=== PATIENT | female | born 1940 | race African-American/Black ===

== ENCOUNTER 2025-01-08 10:33 | Inpatient (IN) | payer MEDICARE, OTHER ==
[~2025-01-08] VITALS: Ht 160 cm; Wt 58.1 kg
[2025-01-08] VITALS (7 sets, daily range): BP systolic 128–152; BP diastolic 64–80; TEMP 97.8; O2SAT 92–100
[2025-01-08 11:22] LABS: PLATELET COUNT (AUTO) 311 K/uL (150-450); RED BLOOD CELL COUNT(AUTO) 3.63 MIL/uL (4.0-5.2); RED CELL DISTRIBUTION WIDTH 14.4 % (11.5-15.0); WHITE BLOOD COUNT (AUTO) 9.5 K/uL (4.3-11.0)
[2025-01-08 11:22] LABS: ABG BASE EXCESS 10.5 mmol/L (-2.0-3.0); ABG OXYGEN SATURATION 99.4 % (94.0-98.0); ABG PCO2 120.8 mmHg (32.0-45.0); ABG PH 7.167 (7.350-7.450); ABG PO2 280.5 mmHg (83.0-108.0); ABG TOTAL HEMOGLOBIN 11.1 G/dL (12.0-16.0); FRACTIONATED INSPIRED OXYGEN 100.0 %; SITE, ABG RIGHT RADIAL
[2025-01-08] MEDS ORDERED: PROPOFOL 20 ML IV ONE (11:28)
[2025-01-08 11:30] LABS: CALCIUM, SERUM 9.2 mg/dL (8.5-10.1); CREATININE 0.5 mg/dL (0.6-1.3); SODIUM SERUM 143 mmol/L (136-145); UREA NITROGEN, BLOOD 16 mg/dL (7-18)
[2025-01-08] MEDS: PROPOFOL 200 MG/20 ML VIAL IV ONE (11:30)
[2025-01-08 11:35] LABS: ASPARTATE AMINOTRANSFERASE 16 U/L (15-37); TOTAL PROTEIN, SERUM 7.4 g/dL (6.4-8.2)
[2025-01-08 11:37] LABS: LACTIC ACID 0.5 mmol/L (0.4-2.0)
[2025-01-08 11:41] LABS: INR 1.15 (0.91-1.10)
[2025-01-08] MEDS ORDERED: ASPI-1169 PO (12:31)
[2025-01-08] MEDS ORDERED: GABA-532 PO (12:31)
[2025-01-08] MEDS ORDERED: FURO20TA4 PO (12:31)
[2025-01-08] MEDS ORDERED: BUSP5TAB3 PO (12:32)
[2025-01-08] MEDS ORDERED: ACET-2030 PO (12:32)
[2025-01-08] MEDS ORDERED: ATOR40TA PO (12:32)
[2025-01-08] MEDS ORDERED: CALC500T53 PO (12:32)
[2025-01-08] MEDS ORDERED: MAGN400O6 PO (12:32)
[2025-01-08] MEDS ORDERED: BISA10SU11 RC (12:32)
[2025-01-08] MEDS ORDERED: ALBU8.5H8 IH (12:32)
[2025-01-08] MEDS ORDERED: DONE10TA44 PO (12:32)
[2025-01-08] MEDS ORDERED: ACET-868 PO ×2 (12:32)
[2025-01-08] MEDS ORDERED: CHOL100043 PO (12:32)
[2025-01-08] MEDS ORDERED: NA P133E RC (12:32)
[2025-01-08] MEDS ORDERED: AMIN30LI2 PO (12:32)
[2025-01-08 12:56] LABS: APPEARANCE,URINE SLIGHTLY CLOUDY (CLEAR); BLOOD, URINE TRACE-INTA Ery/uL (NEGATIVE); LEUKOCYTE ESTERASE ,URINE 1+ (NEGATIVE); NITRITE, URINE POSITIVE (NEGATIVE); UGLUCOSE NEGATIVE (NEGATIVE)
[2025-01-08 13:05] LABS: ADD URINE CULTURE YES; SQUAMOUS EPITHELIAL CELL,UR Moderate /HPF (None Seen)
[2025-01-08] MEDS ORDERED: ENOXAPARIN SODIUM 40 MG/0.4 ML DISP.SYRIN SQ SCH (14:00)
[2025-01-08] MEDS ORDERED: FUROSEMIDE 40 MG/4 ML VIAL IV SCH (14:00)
[2025-01-08] MEDS ORDERED: DOSING PER PHARMACY-CEFEPIME IVPB XX PRN (14:00)
[2025-01-08] MEDS ORDERED: ACETAMINOPHEN 325 MG TABLET PO PRN (15:30)
[2025-01-08] MEDS ORDERED: Z GUARD REMEDY 4 OZ OINT TP PRN (15:30)
[2025-01-08] MEDS ORDERED: ONDANSETRON HCL/PF 4 MG/2 ML VIAL IVP PRN (15:30)
[2025-01-08] MEDS: ENOXAPARIN SODIUM 40 MG/0.4 ML DISP.SYRIN SQ SCH (17:46)
[2025-01-08] MEDS: FUROSEMIDE 40 MG/4 ML VIAL IV SCH (17:46)
[2025-01-08] MEDS: PROPOFOL 100 ML IV PRN (17:48)
[2025-01-08 17:52] LABS: ABG BASE EXCESS 7.1 mmol/L (-2.0-3.0); ABG OXYGEN SATURATION 91.4 % (94.0-98.0); ABG PCO2 45.9 mmHg (32.0-45.0); ABG PH 7.459 (7.350-7.450); ABG PO2 58.1 mmHg (83.0-108.0); ABG TOTAL HEMOGLOBIN 10.5 G/dL (12.0-16.0); FRACTIONATED INSPIRED OXYGEN 50.0 %; PEEP,BG 5 cm H2O; SET RATE, BG 16.0; SITE, ABG RIGHT RADIAL; VT, ABG 400 mL
[2025-01-08] MEDS: IV NS 0.9% 250 ML IV PRN (20:50)
[2025-01-08] MEDS: CEFEPIME 2 GM in IV D5W 100 ML IV SCH (21:00)
[2025-01-08] MEDS: DONEPEZIL 5 MG TABLET PO SCH (22:00)
[2025-01-08] MEDS: ATORVASTATIN 40 MG TABLET PO SCH (22:00)
[2025-01-09] VITALS (24 sets, daily range): BP systolic 97–136; BP diastolic 66–83; TEMP 97.7–98.4; O2SAT 100
[2025-01-09 04:32] LABS: PLATELET COUNT (AUTO) 280 K/uL (150-450); RED BLOOD CELL COUNT(AUTO) 3.61 MIL/uL (4.0-5.2); RED CELL DISTRIBUTION WIDTH 14.0 % (11.5-15.0); WHITE BLOOD COUNT (AUTO) 11.0 K/uL (4.3-11.0)
[2025-01-09 05:17] LABS: CALCIUM, SERUM 9.5 mg/dL (8.5-10.1); CREATININE 0.6 mg/dL (0.6-1.3); PHOSPHORUS 2.8 mg/dL (2.5-4.9); SODIUM SERUM 145.0 mmol/L (136-145); UREA NITROGEN, BLOOD 14.0 mg/dL (7-18)
[2025-01-09] MEDS: POTASSIUM CL. PREMIX PERIPHER. 50 ML IV SCH (06:36)
[2025-01-09] MEDS: PANTOPRAZOLE 40 MG TABLET.DR PO SCH (07:30)
[2025-01-09] MEDS: ASPIRIN 81 MG TAB.CHEW PO SCH (08:22)
[2025-01-09 08:29] LABS: ABG BASE EXCESS 10.8 mmol/L (-2.0-3.0); ABG OXYGEN SATURATION 98.2 % (94.0-98.0); ABG PCO2 37.4 mmHg (32.0-45.0); ABG PH 7.571 (7.350-7.450); ABG PO2 112.8 mmHg (83.0-108.0); ABG TOTAL HEMOGLOBIN 10.4 G/dL (12.0-16.0); FRACTIONATED INSPIRED OXYGEN 50.0 %; PEEP,BG 5 cm H2O; SET RATE, BG 16.0; SITE, ABG RIGHT RADIAL; VT, ABG 400 mL
[2025-01-09] MEDS ORDERED: MAGNESIUM OXIDE 400 MG TABLET PO ONE (10:30)
[2025-01-09] MEDS: Magnesium 1GM/D5W 100ML PREMIX 100 ML IV SCH (11:05)
[2025-01-09] MEDS: FUROSEMIDE 40 MG/4 ML VIAL IV SCH ×2 (12:54→18:09)
[2025-01-09] MEDS ORDERED: GUAIFENESIN 300 MG/15 ML UDC PO PRN (15:00)
[2025-01-09] MEDS: JEVITY 1.2 CAL 1,000 ML BOTTLE GT PRN (18:11)
[2025-01-10] VITALS (34 sets, daily range): BP systolic 101–139; BP diastolic 60–102; TEMP 97.1–98.8; O2SAT 96–100
[2025-01-10 04:39] LABS: CALCIUM, SERUM 9.0 mg/dL (8.5-10.1); CREATININE 0.6 mg/dL (0.6-1.3); SODIUM SERUM 142.0 mmol/L (136-145); UREA NITROGEN, BLOOD 19.0 mg/dL (7-18)
[2025-01-10] MEDS: PANTOPRAZOLE 40 MG/PACK PACK GT SCH (09:03)
[2025-01-10 13:34] LABS: ABG BASE EXCESS 6.7 mmol/L (-2.0-3.0); ABG OXYGEN SATURATION 96.6 % (94.0-98.0); ABG PCO2 39.1 mmHg (32.0-45.0); ABG PH 7.506 (7.350-7.450); ABG PO2 87.5 mmHg (83.0-108.0); ABG TOTAL HEMOGLOBIN 10.3 G/dL (12.0-16.0); FRACTIONATED INSPIRED OXYGEN 40.0 %; PEEP,BG 5 cm H2O; SET RATE, BG 4.0; SITE, ABG LEFT RADIAL; VT, ABG 350 mL
[2025-01-11] VITALS (18 sets, daily range): BP systolic 111–138; BP diastolic 63–82; TEMP 97.2–98.8; O2SAT 98–100
[2025-01-11] MEDS: IPRATROPIUM NEB FS 0.5 MG/2.5 ML AMPUL.NEB NEB SCH (19:30)
[2025-01-11] MEDS: ALBUTEROL HALF STRENGTH 1.25 MG/3 ML VIAL.NEB NEB SCH (19:30)
[2025-01-12] VITALS (11 sets, daily range): BP systolic 127–154; BP diastolic 48–78; TEMP 97.5–98.8; O2SAT 98–100
[2025-01-12] MEDS ORDERED: IV NS 0.9% 0 ML IV ONE (11:24)
[2025-01-12] MEDS ORDERED: IOHEXOL-300 100 ML VIAL IV ONE (11:24)
[2025-01-12 17:18] LABS: PLATELET COUNT (AUTO) 281 K/uL (150-450); RED BLOOD CELL COUNT(AUTO) 3.22 MIL/uL (4.0-5.2); RED CELL DISTRIBUTION WIDTH 13.8 % (11.5-15.0); WHITE BLOOD COUNT (AUTO) 11.2 K/uL (4.3-11.0)
[2025-01-12 17:47] LABS: CALCIUM, SERUM 9.4 mg/dL (8.5-10.1); CREATININE 0.8 mg/dL (0.6-1.3); PHOSPHORUS 3.3 mg/dL (2.5-4.9); SODIUM SERUM 144.0 mmol/L (136-145); UREA NITROGEN, BLOOD 21.0 mg/dL (7-18)
[2025-01-13] VITALS (11 sets, daily range): BP systolic 107–134; BP diastolic 68–81; TEMP 97.5–98.8; O2SAT 90–100
[2025-01-13 08:07] LABS: FOLIC ACID 17.1 ng/mL (>3.0)
[2025-01-13] MEDS ORDERED: CT SWABBABLE VALVE TRANS SET 1 EA INFUS.SET MC ONE (09:23)
[2025-01-13] MEDS ORDERED: IV NS 0.9% 500 ML IV ONE (09:23)
[2025-01-13] MEDS ORDERED: IOHEXOL-300 100 ML VIAL IV ONE (09:24)
[2025-01-13] MEDS: ENSURE ENLIVE CHOC 237 ML CAN PO SCH (11:05)
[2025-01-14] VITALS: BP 130/78; TEMP 98.1; O2SAT 94
[2025-01-14 04:00] VITALS: BP 123/74; TEMP 98.1; O2SAT 95
[2025-01-14 08:00] VITALS: BP 126/86; TEMP 97.9; O2SAT 98
[2025-01-14] MEDS: METOPROLOL SUCCINATE 25 MG TAB.SR.24H PO SCH (09:01)
[2025-01-14 16:00] VITALS: BP 141/91; TEMP 97.9; O2SAT 98
[2025-01-14 20:00] VITALS: BP 113/72; TEMP 98.2; O2SAT 100
[2025-01-14 21:00] VITALS: BP 113/72; TEMP 98.2; O2SAT 100
[2025-01-15 04:00] VITALS: BP 138/71; TEMP 97.7; O2SAT 98
[2025-01-15 06:25] LABS: PLATELET COUNT (AUTO) 240 K/uL (150-450); RED BLOOD CELL COUNT(AUTO) 3.46 MIL/uL (4.0-5.2); RED CELL DISTRIBUTION WIDTH 13.9 % (11.5-15.0); WHITE BLOOD COUNT (AUTO) 10.8 K/uL (4.3-11.0)
[2025-01-15 07:06] LABS: CALCIUM, SERUM 8.9 mg/dL (8.5-10.1); CREATININE 0.6 mg/dL (0.6-1.3); UREA NITROGEN, BLOOD 17.0 mg/dL (7-18)
[2025-01-15 07:15] LABS: SODIUM SERUM 136.0 mmol/L (136-145)
[2025-01-15] MEDS ORDERED: POTASSIUM CHLORIDE 20 MEQ TAB.PRT.SR PO ONE (08:00)
[2025-01-15] MEDS: POTASSIUM CL. PREMIX PERIPHER. 50 ML IV SCH (10:51)
[2025-01-15 12:00] VITALS: BP 138/71; TEMP 97.7; O2SAT 98
[2025-01-15 14:07] LABS: METHYLMALONIC ACID 210.0 nmol/L (0-378)
[2025-01-15 16:00] VITALS: BP 89/60; TEMP 97.9; O2SAT 98
[2025-01-15 19:50] VITALS: O2SAT 99
[2025-01-15 20:00] VITALS: BP 128/71; TEMP 97.5; O2SAT 100
[2025-01-15 20:05] VITALS: O2SAT 99
[2025-01-16 04:00] VITALS: BP 145/79; TEMP 97.3; O2SAT 98
[2025-01-16 07:25] VITALS: O2SAT 96
[2025-01-16 07:40] VITALS: O2SAT 99
[2025-01-16 08:00] VITALS: BP 137/77; TEMP 97.5; O2SAT 99
[2025-01-16 09:06] VITALS: BP 137/77
[2025-01-16] MEDS: THERAHONEY GEL 1.5 OZ TUBE TP SCH (09:07)
[2025-01-16] MEDS ORDERED: FURO-144 PO (09:12)
[2025-01-16] MEDS ORDERED: METO25TA4 PO (09:12)
[2025-01-16] MEDS ORDERED: POTA10CA43 PO (09:13)
== END 2025-01-16 13:55 | DRG 208 ==
LOC: ER 10:41 → ICU 17:05 → TELE1 01-11 16:20 → UNDODISIN 01-12 01:55 → MEDSG1 01-14 08:50
PROVIDERS: ADMIT Nurse Practitioner Family; ATTEND Internal Medicine
PROC: 5A1945Z Respiratory Ventilation, 24-96 Consecutive Hours (ICD-10-PCS; principal; 2025-01-08)
PROC: 0BH18EZ Insertion of Endotracheal Airway into Trachea, Via Natural or Artificial Opening Endoscopic (ICD-10-PCS; 2025-01-08)
DX: J96.21 Acute and chronic respiratory failure with hypoxia (principal); G93.41 Metabolic encephalopathy; I50.43 Acute on chronic combined systolic (congestive) and diastolic (congestive) heart failure; E44.1 Mild protein-calorie malnutrition; I42.9 Cardiomyopathy, unspecified; C34.31 Malignant neoplasm of lower lobe, right bronchus or lung; I11.0 Hypertensive heart disease with heart failure; J96.22 Acute and chronic respiratory failure with hypercapnia; I48.91 Unspecified atrial fibrillation; F03.90 Unspecified dementia, unspecified severity, without behavioral disturbance, psychotic disturbance, mood disturbance, and anxiety; I69.392 Facial weakness following cerebral infarction; J44.9 Chronic obstructive pulmonary disease, unspecified; E78.5 Hyperlipidemia, unspecified; E88.09 Other disorders of plasma-protein metabolism, not elsewhere classified; Z95.0 Presence of cardiac pacemaker; Z87.891 Personal history of nicotine dependence; F09 Unspecified mental disorder due to known physiological condition; I25.10 Atherosclerotic heart disease of native coronary artery without angina pectoris; Z68.22 Body mass index [BMI] 22.0-22.9, adult; I35.0 Nonrheumatic aortic (valve) stenosis; E87.6 Hypokalemia
CPT/HCPCS: 31720; 36415; 36600; 70450-TC; 71045-TC; 71270-TC; 80048-TC; 80076-TC; 81001; 82607-TC; 82803-TC; 83605-TC; 83735-TC; 83880; 83921; 84100-TC; 84132-TC; 84425; 84443-TC; 84484-TC; 85025-TC; 85730-TC; 87040-TC; 87081-TC; 87086-TC; 87186-TC; 92526; 92611; 93307-TC; 94002-TC; 94003-TC; 94760-TC; 94799-TC; 99082-TC; A4223; A7526; G0378; J0692; J1650; J1938; J2704; J3475; J3480; J3490; J7040; J7050; J7060; Q9967

== ENCOUNTER 2025-02-19 10:16 | Inpatient (IN) | payer MEDICARE, OTHER ==
[2025-02-19] VITALS (16 sets, daily range): BP systolic 86–151; BP diastolic 57–80; TEMP 97.8; O2SAT 88–100
[~2025-02-19] VITALS: Ht 167.6 cm; Wt 60.8 kg
[~2025-02-19 10:16] MED LIST: ACET-2030 PO; ACET-868 PO; ALBU8.5H8 IH; AMIN30LI2 PO; ASPI-1169 PO; ATOR40TA PO; BISA10SU11 RC; BUSP5TAB3 PO; CALC500T53 PO; CHOL100043 PO; DONE10TA44 PO; FURO-144 PO; GABA-532 PO; MAGN400O6 PO; METO25TA4 PO; NA P133E RC; POTA10CA43 PO
[2025-02-19 11:01] LABS: PLATELET COUNT (AUTO) 432 K/uL (150-450); RED BLOOD CELL COUNT(AUTO) 3.54 MIL/uL (4.0-5.2); RED CELL DISTRIBUTION WIDTH 16.1 % (11.5-15.0); WHITE BLOOD COUNT (AUTO) 12.0 K/uL (4.3-11.0)
[2025-02-19 11:03] LABS: INR 1.17 (0.91-1.10)
[2025-02-19 11:04] LABS: SERUM AMMONIA 33 umol/L (11-32)
[2025-02-19 11:05] LABS: ASPARTATE AMINOTRANSFERASE 16 U/L (15-37); CALCIUM, SERUM 9.0 mg/dL (8.5-10.1); CREATININE 0.8 mg/dL (0.6-1.3); SODIUM SERUM 147 mmol/L (136-145); TOTAL PROTEIN, SERUM 7.9 g/dL (6.4-8.2); UREA NITROGEN, BLOOD 30 mg/dL (7-18)
[2025-02-19 11:05] LABS: ABG BASE EXCESS 12.6 mmol/L (-2.0-3.0); ABG OXYGEN SATURATION 83.1 % (94.0-98.0); ABG PCO2 74.9 mmHg (32.0-45.0); ABG PH 7.354 (7.350-7.450); ABG PO2 56.6 mmHg (83.0-108.0); ABG TOTAL HEMOGLOBIN 11.0 G/dL (12.0-16.0); FLOW, BLOOD GAS 2.00 L/min (0.00-30.00); FRACTIONATED INSPIRED OXYGEN 28.0 %; SITE, ABG LEFT RADIAL
[2025-02-19] MEDS ORDERED: AMIN30LI66 PO (11:27)
[2025-02-19] MEDS ORDERED: FURO-144 PO (11:27)
[2025-02-19] MEDS ORDERED: POTA10CA43 PO (11:27)
[2025-02-19] MEDS ORDERED: ASCO-352 PO (11:27)
[2025-02-19] MEDS ORDERED: METO25TA6 PO (11:27)
[2025-02-19] MEDS ORDERED: COLL30OI TP (11:27)
[2025-02-19] MEDS ORDERED: MULT-447 PO (11:27)
[2025-02-19] MEDS ORDERED: ALBUTEROL FS 2.5 MG/3 ML VIAL.NEB ONE (11:46)
[2025-02-19] MEDS ORDERED: IPRATROPIUM NEB FS 0.5 MG/2.5 ML AMPUL.NEB ONE (11:46)
[2025-02-19] MEDS: IPRATROPIUM NEB FS 0.5 MG/2.5 ML AMPUL.NEB NEB ONE (11:58)
[2025-02-19] MEDS: ALBUTEROL FS 2.5 MG/3 ML VIAL.NEB NEB ONE (11:58)
[2025-02-19] MEDS ORDERED: IPRATROPIUM NEB FS 0.5 MG/2.5 ML AMPUL.NEB NEB PRN (15:30)
[2025-02-19] MEDS ORDERED: ACETAMINOPHEN 650 MG/SUPP.RECT RC PRN (15:30)
[2025-02-19] MEDS ORDERED: ONDANSETRON HCL/PF 4 MG/2 ML VIAL IVP PRN (15:30)
[2025-02-19] MEDS ORDERED: ALBUTEROL FS 2.5 MG/0.5 ML VIAL.NEB NEB PRN (15:30)
[2025-02-19] MEDS: ENOXAPARIN SODIUM 40 MG/0.4 ML DISP.SYRIN SQ SCH (17:35)
[2025-02-20] VITALS (22 sets, daily range): BP systolic 88–143; BP diastolic 61–100; TEMP 97.3–98.1; O2SAT 94–100
[2025-02-20 04:08] LABS: PLATELET COUNT (AUTO) 398 K/uL (150-450); RED BLOOD CELL COUNT(AUTO) 3.67 MIL/uL (4.0-5.2); RED CELL DISTRIBUTION WIDTH 16.2 % (11.5-15.0); WHITE BLOOD COUNT (AUTO) 6.2 K/uL (4.3-11.0)
[2025-02-20 04:20] LABS: CALCIUM, SERUM 9.2 mg/dL (8.5-10.1); CREATININE 1.1 mg/dL (0.6-1.3); PHOSPHORUS 6.1 mg/dL (2.5-4.9); UREA NITROGEN, BLOOD 43.0 mg/dL (7-18)
[2025-02-20 04:34] LABS: SODIUM SERUM 150.0 mmol/L (136-145)
[2025-02-20] MEDS: PANTOPRAZOLE 40 MG VIAL IV SCH (08:06)
[2025-02-20 08:13] LABS: FRACTIONATED INSPIRED OXYGEN 40.0 %
[2025-02-20 09:46] LABS: ABG BASE EXCESS 9.8 mmol/L (-2.0-3.0); ABG OXYGEN SATURATION 97.9 % (94.0-98.0); ABG PCO2 51.2 mmHg (32.0-45.0); ABG PH 7.454 (7.350-7.450); ABG PO2 101.1 mmHg (83.0-108.0); ABG TOTAL HEMOGLOBIN 11.0 G/dL (12.0-16.0); SET RATE, BG 24.0; SITE, ABG RIGHT RADIAL
[2025-02-20] MEDS: IV D5W 1,000 ML IV SCH (10:21)
[2025-02-20] MEDS ORDERED: DOSING PER PHARMACY-CEFEPIME IVPB XX PRN (12:30)
[2025-02-20] MEDS: THERAHONEY GEL 1.5 OZ TUBE TP SCH (12:45)
[2025-02-20] MEDS: CEFEPIME 2 GM in IV D5W 100 ML IV SCH (14:05)
[2025-02-20 14:10] LABS: ABG BASE EXCESS 12.3 mmol/L (-2.0-3.0); ABG OXYGEN SATURATION 90.1 % (94.0-98.0); ABG PCO2 48.5 mmHg (32.0-45.0); ABG PH 7.500 (7.350-7.450); ABG PO2 57.1 mmHg (83.0-108.0); ABG TOTAL HEMOGLOBIN 10.6 G/dL (12.0-16.0); FLOW, BLOOD GAS 2.00 L/min (0.00-30.00); FRACTIONATED INSPIRED OXYGEN 28.0 %; SITE, ABG LEFT RADIAL
[2025-02-20] MEDS: ALBUTEROL FS 2.5 MG/0.5 ML VIAL.NEB NEB SCH (14:12)
[2025-02-20] MEDS: IPRATROPIUM NEB FS 0.5 MG/2.5 ML AMPUL.NEB NEB SCH (14:12)
[2025-02-20 23:52] LABS: APPEARANCE,URINE CLOUDY (CLEAR); BLOOD, URINE NEGATIVE Ery/uL (NEGATIVE); LEUKOCYTE ESTERASE ,URINE 3+ (NEGATIVE); NITRITE, URINE NEGATIVE (NEGATIVE); UGLUCOSE NEGATIVE (NEGATIVE)
[2025-02-21] VITALS (8 sets, daily range): BP systolic 105–159; BP diastolic 75–98; TEMP 97.2–98.2; O2SAT 96–100
[2025-02-21 00:12] LABS: CREATININE, URINE 88.6 MG/DL (30.0-125.0); URINE TOTAL PROTEIN 65.2 mg/dL (0-11.9)
[2025-02-21 00:34] LABS: ADD URINE CULTURE YES; CALCIUM OXALATE CRYSTALS,UR Moderate /HPF (None Seen); SQUAMOUS EPITHELIAL CELL,UR Moderate /HPF (None Seen)
[2025-02-21 00:40] LABS: EOSINOPHIL,URINE None Seen
[2025-02-21 11:04] LABS: PLATELET COUNT (AUTO) 374 K/uL (150-450); RED BLOOD CELL COUNT(AUTO) 3.34 MIL/uL (4.0-5.2); RED CELL DISTRIBUTION WIDTH 15.8 % (11.5-15.0); WHITE BLOOD COUNT (AUTO) 9.7 K/uL (4.3-11.0)
[2025-02-21 11:30] LABS: CREATINE KINASE, TOTAL 28 U/L (26-192)
[2025-02-21 11:34] LABS: ASPARTATE AMINOTRANSFERASE 11 U/L (15-37); CALCIUM, SERUM 9.2 mg/dL (8.5-10.1); CREATININE 1.3 mg/dL (0.6-1.3); PHOSPHORUS 4.1 mg/dL (2.5-4.9); SODIUM SERUM 142 mmol/L (136-145); TOTAL PROTEIN, SERUM 7.3 g/dL (6.4-8.2); UREA NITROGEN, BLOOD 52 mg/dL (7-18)
[2025-02-22] VITALS (10 sets, daily range): BP systolic 133–166; BP diastolic 28–91; TEMP 97.1–98.4; O2SAT 94–100
[2025-02-22] MEDS ORDERED: POTASSIUM CL. PREMIX PERIPHER. 50 ML IV SCH (08:30)
[2025-02-22] MEDS: Magnesium 1GM/D5W 100ML PREMIX 100 ML IV SCH (08:30)
[2025-02-22] MEDS ORDERED: POTASSIUM PHOSPHATE MM 5 MMOL in IV NS 0.9% 100 ML IV SCH (08:30)
[2025-02-22] MEDS: IV D5/0.45 NACL 1,000 ML IV PRN (10:24)
[2025-02-22] MEDS: HALOPERIDOL LACTATE INJ 5 MG/ML VIAL IM PRN (12:27)
[2025-02-22 20:53] LABS: PLATELET COUNT (AUTO) 307 K/uL (150-450); RED BLOOD CELL COUNT(AUTO) 3.59 MIL/uL (4.0-5.2); RED CELL DISTRIBUTION WIDTH 16.1 % (11.5-15.0); WHITE BLOOD COUNT (AUTO) 7.3 K/uL (4.3-11.0)
[2025-02-22 21:06] LABS: ASPARTATE AMINOTRANSFERASE 14.0 U/L (15-37); CALCIUM, SERUM 9.2 mg/dL (8.5-10.1); CREATININE 0.9 mg/dL (0.6-1.3); PHOSPHORUS 1.8 mg/dL (2.5-4.9); SODIUM SERUM 140.0 mmol/L (136-145); TOTAL PROTEIN, SERUM 6.9 g/dL (6.4-8.2); UREA NITROGEN, BLOOD 38.0 mg/dL (7-18)
[2025-02-23] VITALS (7 sets, daily range): BP systolic 119–158; BP diastolic 80–98; TEMP 97–99; O2SAT 94–100
[2025-02-23 07:07] LABS: PTH, INTACT 45 pg/mL (15-65)
[2025-02-23 11:46] LABS: PLATELET COUNT (AUTO) 280 K/uL (150-450); RED BLOOD CELL COUNT(AUTO) 3.72 MIL/uL (4.0-5.2); RED CELL DISTRIBUTION WIDTH 16.2 % (11.5-15.0); WHITE BLOOD COUNT (AUTO) 5.5 K/uL (4.3-11.0)
[2025-02-23 12:19] LABS: ASPARTATE AMINOTRANSFERASE 49 U/L (15-37); CALCIUM, SERUM 9.5 mg/dL (8.5-10.1); CREATININE 1.5 mg/dL (0.6-1.3); SODIUM SERUM 135 mmol/L (136-145); TOTAL PROTEIN, SERUM 7.8 g/dL (6.4-8.2); UREA NITROGEN, BLOOD 19 mg/dL (7-18)
[2025-02-23 12:33] LABS: PHOSPHORUS 4.1 mg/dL (2.5-4.9)
[2025-02-23] MEDS: QUETIAPINE FUMARATE 25 MG TABLET PO SCH (13:30)
[2025-02-24] VITALS: BP 137/80; TEMP 99; O2SAT 94
[2025-02-24 04:00] VITALS: BP 139/82; TEMP 98.8; O2SAT 95
[2025-02-24 07:31] LABS: PLATELET COUNT (AUTO) 281 K/uL (150-450); RED BLOOD CELL COUNT(AUTO) 3.33 MIL/uL (4.0-5.2); RED CELL DISTRIBUTION WIDTH 16.1 % (11.5-15.0); WHITE BLOOD COUNT (AUTO) 9.3 K/uL (4.3-11.0)
[2025-02-24 07:32] LABS: ASPARTATE AMINOTRANSFERASE 16.0 U/L (15-37); CALCIUM, SERUM 8.8 mg/dL (8.5-10.1); CREATININE 0.8 mg/dL (0.6-1.3); PHOSPHORUS 1.7 mg/dL (2.5-4.9); TOTAL PROTEIN, SERUM 6.2 g/dL (6.4-8.2); UREA NITROGEN, BLOOD 24.0 mg/dL (7-18)
[2025-02-24 07:48] LABS: SODIUM SERUM 137.0 mmol/L (136-145)
[2025-02-24 08:00] VITALS: BP 159/76; TEMP 98.2; O2SAT 98
[2025-02-24] MEDS: Z GUARD REMEDY 4 OZ OINT TP PRN (10:03)
[2025-02-24] MEDS: POTASSIUM CL. PREMIX PERIPHER. 50 ML IV SCH (10:04)
[2025-02-24] MEDS: DICLOFENAC TOPICAL 100 GM TUBE TP PRN (11:33)
[2025-02-24 12:00] VITALS: BP 152/71; TEMP 97.9
[2025-02-24 16:00] VITALS: TEMP 97.3; O2SAT 99
[2025-02-24] MEDS: Sodium Phosphate 15 MMOL in IV NS 0.9% 245 ML IV ONE (17:10)
[2025-02-24 20:00] VITALS: BP 112/75; TEMP 98.2; O2SAT 99
[2025-02-25] VITALS: BP 112/75; TEMP 98.2; O2SAT 99
[2025-02-25 04:00] VITALS: BP 118/67; TEMP 98.6; O2SAT 94
[2025-02-25 07:54] LABS: PLATELET COUNT (AUTO) 247 K/uL (150-450); RED BLOOD CELL COUNT(AUTO) 3.46 MIL/uL (4.0-5.2); RED CELL DISTRIBUTION WIDTH 16.1 % (11.5-15.0); WHITE BLOOD COUNT (AUTO) 13.4 K/uL (4.3-11.0)
[2025-02-25 08:00] VITALS: BP 105/81; TEMP 98.2; O2SAT 98
[2025-02-25 08:20] LABS: CALCIUM, SERUM 8.5 mg/dL (8.5-10.1); CREATININE 0.7 mg/dL (0.6-1.3); PHOSPHORUS 2.5 mg/dL (2.5-4.9); SODIUM SERUM 136.0 mmol/L (136-145); UREA NITROGEN, BLOOD 19.0 mg/dL (7-18)
[2025-02-25] MEDS: PANTOPRAZOLE 40 MG TABLET.DR PO SCH (10:00)
[2025-02-25] MEDS: POTASSIUM CHLORIDE 20 MEQ POWDER PACKET PO SCH (11:00)
[2025-02-25] MEDS ORDERED: CEFE2FRO IV (11:02)
[2025-02-25] MEDS ORDERED: QUET25TA PO (11:02)
[2025-02-25] MEDS ORDERED: IPRA3AMP23 IH (11:09)
[2025-02-25] MEDS: POTASSIUM CL. PREMIX PERIPHER. 50 ML IV SCH (11:44)
[2025-02-25 12:00] VITALS: BP 105/81; TEMP 98.2; O2SAT 98
[2025-02-25 16:00] VITALS: BP 109/79; TEMP 98.1; O2SAT 94
== END 2025-02-25 20:13 | DRG 190 ==
LOC: ER 10:21 → ICU 15:48 → TELE1 02-20 17:39 → TELE-TD 02-20 20:34 → MEDSG1 02-23 09:38
PROVIDERS: ATTEND Nurse Practitioner Family
PROC: 5A09357 Assistance with Respiratory Ventilation, Less than 24 Consecutive Hours, Continuous Positive Airway Pressure (ICD-10-PCS; principal; 2025-02-19)
DX: J44.1 Chronic obstructive pulmonary disease with (acute) exacerbation (principal); G93.41 Metabolic encephalopathy; J96.21 Acute and chronic respiratory failure with hypoxia; J96.22 Acute and chronic respiratory failure with hypercapnia; E44.1 Mild protein-calorie malnutrition; E87.0 Hyperosmolality and hypernatremia; N17.9 Acute kidney failure, unspecified; E87.3 Alkalosis; I50.42 Chronic combined systolic (congestive) and diastolic (congestive) heart failure; C34.31 Malignant neoplasm of lower lobe, right bronchus or lung; I11.0 Hypertensive heart disease with heart failure; D64.9 Anemia, unspecified; E78.5 Hyperlipidemia, unspecified; E86.0 Dehydration; E87.6 Hypokalemia; E88.09 Other disorders of plasma-protein metabolism, not elsewhere classified; F03.90 Unspecified dementia, unspecified severity, without behavioral disturbance, psychotic disturbance, mood disturbance, and anxiety; Z79.82 Long term (current) use of aspirin; Z86.73 Personal history of transient ischemic attack (TIA), and cerebral infarction without residual deficits; E83.89 Other disorders of mineral metabolism; R13.10 Dysphagia, unspecified; Z68.21 Body mass index [BMI] 21.0-21.9, adult; Z95.0 Presence of cardiac pacemaker; F29 Unspecified psychosis not due to a substance or known physiological condition; S31.000A Unspecified open wound of lower back and pelvis without penetration into retroperitoneum, initial encounter; X58.XXXA Exposure to other specified factors, initial encounter; Y93.9 Activity, unspecified; Y92.129 Unspecified place in nursing home as the place of occurrence of the external cause
CPT/HCPCS: 36415; 36600; 71045-TC; 80048-TC; 80053-TC; 80076-TC; 81001; 82140-TC; 82550-TC; 82570-TC; 82803-TC; 83735-TC; 83970; 84100-TC; 84155; 84165; 84300-TC; 84443-TC; 84484-TC; 85025-TC; 85730-TC; 87081-TC; 87086-TC; 92526; 92611; 94760-TC; 94762-TC; 94799-TC; 99082-TC; A4223; A9563; G0378; J0692; J1630; J1650; J2470; J2919; J3480; J3490; J7030; J7050; J7060; J7070